=== PATIENT | female | born 1950 | race Caucasian/White ===

== ENCOUNTER 2017-05-08 11:19 | Inpatient (IN) | payer OTHER ==
[2017-05-08 14:45] LABS: ADD MAN DIFF? NO
[2017-05-08 14:46] LABS: BASOPHIL # 0.1 10^3/ul (0.0-0.1); BASOPHILS % 0.6 % (0.0-2.0); EOSINOPHILS # 0.3 10^3/ul (0.0-0.5); EOSINOPHILS % 2.5 % (0.0-7.0); HEMATOCRIT 34.3 % (37.0-47.0); HEMOGLOBIN 11.5 g/dl (12.0-16.0); LYMPHOCYTES # 4.9 10^3/ul (0.8-2.9); MEAN CORPUSCULAR HEMOGLOBIN 30.2 pg (29.0-33.0); MEAN CORPUSCULAR HGB CONC 33.5 g/dl (32.0-37.0); MEAN PLATELET VOLUME 11.4 fl (7.4-10.4); MONOCYTE # 0.9 10^3/ul (0.3-0.9); MONOCYTES % 7.5 % (0.0-11.0); NEUTROPHILS % 48.9 % (39.0-77.0); PLATELET COUNT 297 10^3/UL (140-415); RED BLOOD COUNT 3.81 10^6/ul (4.20-5.40); RED CELL DISTRIBUTION WIDTH 15.1 % (11.5-14.5)
[2017-05-08 14:46] LABS: WHITE BLOOD COUNT 12.2 10^3/ul (4.8-10.8)
[2017-05-08 15:06] LABS: INR 1.01; PROTIME 13.4 Sec (11.9-14.9)
[2017-05-08 15:07] LABS: PARTIAL THROMBOPLASTIN TIME 30.9 Sec (25.0-35.0)
[2017-05-08 15:16] LABS: ALANINE AMINOTRANSFERASE 31 IU/L (13-69); ALBUMIN 3.8 g/dl (3.3-4.9); ALBUMIN/GLOBULIN RATIO 1.31; ALKALINE PHOSPHATASE 65 IU/L (42-121); ANION GAP 11 (8-16); ASPARTATE AMINO TRANSFERASE 16 IU/L (15-46); BLOOD UREA NITROGEN 29 mg/dl (7-20); CALCIUM 8.8 mg/dl (8.4-10.2); CARBON DIOXIDE 29 mmol/L (21-31); CHLORIDE 105 mmol/L (97-110); CREATININE 0.72 mg/dl (0.44-1.00); GLUCOSE 142 mg/dl (70-220); LIPASE 60 U/L (23-300); POTASSIUM 4.2 mmol/L (3.5-5.1); SODIUM 141 mmol/L (135-144); TOTAL PROTEIN 6.7 g/dl (6.1-8.1)
[2017-05-08] MEDS: HYDROmorphONE 1 MG/ML SYG IV (17:40)
[2017-05-08] MEDS: ONDANSETRON 4 MG INJ IV (17:40)
[2017-05-08] MEDS: LABETALOL HCL 20MG INJ IV (19:25)
[2017-05-08] MEDS ORDERED: LOSARTAN 50 MG TAB PO (19:30)
[2017-05-08] MEDS ORDERED: ONDANSETRON 4 MG INJ IV ×3 (19:30→21:30)
[2017-05-08] MEDS ORDERED: ACETAMINOPHEN 325 MG TAB PO ×2 (19:30→21:30)
[2017-05-08] MEDS ORDERED: GLUCOSE GEL 15 GRAM TUBE BUCCAL (20:00)
[2017-05-08] MEDS ORDERED: GLUCAGON 1 MG INJ IM (20:00)
[2017-05-08] MEDS ORDERED: GLUCOSE GEL 15 GRAM TUBE PO ×2 (20:00)
[2017-05-08] MEDS ORDERED: DEXTROSE 50% 50 ML SYRINGE IV ×2 (20:00)
[2017-05-08] MEDS: AMPICILLIN/SULB 3 GM/NS (PMX) 100 ML IVPB (20:21)
[2017-05-08] MEDS: LINAGLIPTIN 5 MG TABLET PO (20:24)
[2017-05-08] MEDS: metFORMIN 500 MG TAB PO (20:25)
[2017-05-08] MEDS: FENOFIBRATE 145 MG TAB PO (20:25)
[2017-05-08] MEDS ORDERED: NACL 0.9% 3 ML SYG IV (21:30)
[2017-05-08] MEDS ORDERED: BISACODYL (EC) 5 MG TAB PO (21:30)
[2017-05-08] MEDS: SOD CHLORIDE 0.9% 1,000 ML IV (22:42)
[2017-05-08] MEDS: HYDROmorphONE 0.5 MG/0.5 ML SYG IV (22:43)
[2017-05-09] MEDS: INSULIN ASPART [NOVOLOG] 3 ML PEN SC ×4 (01:00→12:09)
[2017-05-09] MEDS: PIPER-TAZO 3.375 GM IV (PMX) 100 ML IVPB ×4 (01:07→17:31)
[2017-05-09] MEDS ORDERED: ACCU-CHEK XX (02:00)
[2017-05-09] MEDS: LOSARTAN 50 MG TAB PO (05:57)
[2017-05-09] MEDS: PANTOPRAZOLE (EC) 40 MG TAB PO (05:58)
[2017-05-09 07:45] LABS: ADD MAN DIFF? NO
[2017-05-09] MEDS ORDERED: GLYCOPYRROLATE 0.4 MG INJ (07:46)
[2017-05-09] MEDS ORDERED: NEOSTIGMINE 3 MG/3 ML SYRINGE (07:46)
[2017-05-09] MEDS ORDERED: PROPOFOL 20 ML (07:46)
[2017-05-09] MEDS ORDERED: ROCURONIUM 50 MG INJ (07:46)
[2017-05-09] MEDS ORDERED: CEFAZOLIN 1 GM INJ (07:46)
[2017-05-09] MEDS ORDERED: ONDANSETRON 4 MG INJ (07:47)
[2017-05-09] MEDS ORDERED: FENTAnyl 50 MCG/ML VIAL (07:47)
[2017-05-09] MEDS ORDERED: DEXAMETHASONE 4 MG/ML 1 ML INJ (07:47)
[2017-05-09] MEDS ORDERED: MIDAZOLAM 1 MG/ML 2 ML INJ (07:47)
[2017-05-09 07:48] LABS: WHITE BLOOD COUNT 11.7 10^3/ul (4.8-10.8)
[2017-05-09 07:48] LABS: BASOPHIL # 0.1 10^3/ul (0.0-0.1); BASOPHILS % 0.8 % (0.0-2.0); EOSINOPHILS # 0.4 10^3/ul (0.0-0.5); EOSINOPHILS % 3.1 % (0.0-7.0); HEMATOCRIT 34.8 % (37.0-47.0); HEMOGLOBIN 11.3 g/dl (12.0-16.0); LYMPHOCYTES # 4.7 10^3/ul (0.8-2.9); LYMPHOCYTES % 40.1 % (15.0-51.0); MEAN CORPUSCULAR HGB CONC 32.5 g/dl (32.0-37.0); MEAN CORPUSCULAR VOLUME 92.3 fl (82.0-101.0); MEAN PLATELET VOLUME 12.1 fl (7.4-10.4); MONOCYTES % 8.9 % (0.0-11.0); NEUTROPHIL # 5.5 10^3/ul (1.6-7.5); NEUTROPHILS % 46.8 % (39.0-77.0); PLATELET COUNT 310 10^3/UL (140-415); RED BLOOD COUNT 3.77 10^6/ul (4.20-5.40); RED CELL DISTRIBUTION WIDTH 15.4 % (11.5-14.5)
[2017-05-09] MEDS ORDERED: ONDANSETRON 4 MG INJ IV ×2 (08:00→09:00)
[2017-05-09] MEDS ORDERED: IPRATROPIUM (NEB) 0.5 MG/2.5 ML AMP HHN (08:00)
[2017-05-09] MEDS ORDERED: FENTAnyl 50 MCG/ML VIAL IV ×2 (08:00)
[2017-05-09] MEDS ORDERED: EPHEDrine SULFATE 50 MG/5 ML SYG IV (08:00)
[2017-05-09] MEDS ORDERED: TRIMETHOBENZAMIDE 100 MG/ML VIAL IM (08:00)
[2017-05-09] MEDS ORDERED: hydrALAzine 20 MG INJ IV (08:00)
[2017-05-09] MEDS ORDERED: HYDROmorphONE (0.2 MG/ML) 10ML SYG IV ×3 (08:00)
[2017-05-09] MEDS ORDERED: MIDAZOLAM 1 MG/ML 2 ML INJ IV (08:00)
[2017-05-09] MEDS ORDERED: DIPHENHYDRAMINE 50 MG INJ IV (08:00)
[2017-05-09] MEDS ORDERED: OXYCODONE/ACETAMINOPHEN (5/325) TAB PO ×2 (08:00)
[2017-05-09] MEDS ORDERED: ALBUTEROL 0.083% (NEB) 2.5 MG/3 ML AMP HHN (08:00)
[2017-05-09] MEDS: FENOFIBRATE 145 MG TAB PO (08:03)
[2017-05-09 08:09] LABS: B-TYPE NATRIURETIC PEPTIDE 161 PG/ML (0-125)
[2017-05-09] MEDS: BUPIVACAINE 0.25% (MPF) 30 ML INJ (08:17)
[2017-05-09 08:19] LABS: ALBUMIN 2.8 g/dl (3.3-4.9); ALBUMIN/GLOBULIN RATIO 1.12; BILIRUBIN,INDIRECT 0.4 mg/dl (0-1.1); BILIRUBIN,TOTAL 0.4 mg/dl (0.2-1.3); CALCIUM 8.2 mg/dl (8.4-10.2); CHLORIDE 108 mmol/L (97-110); CHOLESTEROL 103 mg/dl (100-200); CREATININE 0.93 mg/dl (0.44-1.00); MAGNESIUM 2.1 mg/dl (1.7-2.5); POTASSIUM 4.1 mmol/L (3.5-5.1); SODIUM 141 mmol/L (135-144); TOTAL PROTEIN 5.3 g/dl (6.1-8.1)
[2017-05-09] MEDS ORDERED: SUGAMMADEX SODIUM 200 MG/2 ML VIAL IV (08:23)
[2017-05-09 08:24] LABS: ANION GAP 10 (8-16)
[2017-05-09 08:25] LABS: CARBON DIOXIDE 27 mmol/L (21-31)
[2017-05-09 08:26] LABS: CHOL/HDL RATIO 2.8 RATIO; LDL CHOLESTEROL,CALCULATED 39 mg/dl
[2017-05-09 08:31] LABS: ASPARTATE AMINO TRANSFERASE 19 IU/L (15-46); BLOOD UREA NITROGEN 27 mg/dl (7-20); GLUCOSE 123 mg/dl (70-220); HDL CHOLESTEROL 36 mg/dl (35-98); TRIGLYCERIDES 140 mg/dl (0-149)
[2017-05-09 08:53] LABS: INR 1.13; PROTIME 14.7 Sec (11.9-14.9); PT RATIO 1.1
[2017-05-09] MEDS: MEPERIDINE 25 MG INJ IV (08:54)
[2017-05-09] MEDS: LABETALOL HCL 20MG INJ IV (08:58)
[2017-05-09 09:04] LABS: PARTIAL THROMBOPLASTIN TIME 33.3 Sec (25.0-35.0)
[2017-05-09] MEDS: FENTAnyl 50 MCG/ML VIAL IV (09:18)
[2017-05-09 09:57] LABS: ALKALINE PHOSPHATASE 32 IU/L (42-121)
[2017-05-09 10:22] LABS: ALANINE AMINOTRANSFERASE 29 IU/L (13-69)
[2017-05-09] MEDS: morphine 2 MG INJ IV (10:57)
[2017-05-09] MEDS: SOD CHLORIDE 0.9% 1,000 ML IV (11:40)
[2017-05-09] MEDS: LEVOTHYROXINE 50 MCG TAB PO (12:06)
[2017-05-09] MEDS: OXYCODONE/ACETAMINOPHEN (5/325) TAB PO ×2 (12:07→20:46)
[2017-05-09] MEDS ORDERED: ACCUCHECK 2 AM XX (13:00)
[2017-05-09] MEDS ORDERED: INSULIN ASPART [NOVOLOG] 3 ML PEN SC (17:05)
[2017-05-09] MEDS: Insulin NOVOLOG SS MILD Algorithm (SS with meals and bedtime) SC (17:34)
[2017-05-09] MEDS: DOCUSATE SODIUM 100 MG CAP PO (20:46)
[2017-05-10] MEDS: SOD CHLORIDE 0.9% 1,000 ML IV (00:10)
[2017-05-10] MEDS: PIPER-TAZO 3.375 GM IV (PMX) 100 ML IVPB ×2 (00:10→05:49)
[2017-05-10] MEDS: LOSARTAN 50 MG TAB PO (05:49)
[2017-05-10] MEDS: LEVOTHYROXINE 50 MCG TAB PO (05:49)
[2017-05-10] MEDS: PANTOPRAZOLE (EC) 40 MG TAB PO (05:49)
[2017-05-10] MEDS: OXYCODONE/ACETAMINOPHEN (5/325) TAB PO ×2 (06:01→10:49)
[2017-05-10 06:48] LABS: ADD MAN DIFF? NO
[2017-05-10 07:05] LABS: BASOPHILS % 0.1 % (0.0-2.0); EOSINOPHILS # 0.2 10^3/ul (0.0-0.5); EOSINOPHILS % 1.5 % (0.0-7.0); HEMATOCRIT 24.9 % (37.0-47.0); HEMOGLOBIN 8.3 g/dl (12.0-16.0); LYMPHOCYTES # 3.5 10^3/ul (0.8-2.9); MEAN CORPUSCULAR HEMOGLOBIN 30.9 pg (29.0-33.0); MEAN CORPUSCULAR HGB CONC 33.3 g/dl (32.0-37.0); MEAN CORPUSCULAR VOLUME 92.6 fl (82.0-101.0); MEAN PLATELET VOLUME 12.5 fl (7.4-10.4); MONOCYTE # 1.4 10^3/ul (0.3-0.9); MONOCYTES % 10.8 % (0.0-11.0); NEUTROPHIL # 7.8 10^3/ul (1.6-7.5); PLATELET COUNT 248 10^3/UL (140-415); RED BLOOD COUNT 2.69 10^6/ul (4.20-5.40); RED CELL DISTRIBUTION WIDTH 15.5 % (11.5-14.5)
[2017-05-10 07:13] LABS: PHOSPHORUS 6.2 mg/dl (2.5-4.9)
[2017-05-10 07:21] LABS: INR 1.28; PROTIME 16.2 Sec (11.9-14.9); PT RATIO 1.3
[2017-05-10 07:22] LABS: PARTIAL THROMBOPLASTIN TIME 31.2 Sec (25.0-35.0)
[2017-05-10 07:30] LABS: ALANINE AMINOTRANSFERASE 23 IU/L (13-69); ALBUMIN 2.5 g/dl (3.3-4.9); ALBUMIN/GLOBULIN RATIO 1.08; ALKALINE PHOSPHATASE 28 IU/L (42-121); ANION GAP 19 (8-16); ASPARTATE AMINO TRANSFERASE 13 IU/L (15-46); BILIRUBIN,INDIRECT 0.5 mg/dl (0-1.1); BILIRUBIN,TOTAL 0.5 mg/dl (0.2-1.3); BLOOD UREA NITROGEN 41 mg/dl (7-20); CALCIUM 7.6 mg/dl (8.4-10.2); CARBON DIOXIDE 20 mmol/L (21-31); CHLORIDE 105 mmol/L (97-110); CREATININE 1.44 mg/dl (0.44-1.00); GLUCOSE 199 mg/dl (70-220); POTASSIUM 4.9 mmol/L (3.5-5.1); SODIUM 139 mmol/L (135-144); TOTAL PROTEIN 4.8 g/dl (6.1-8.1)
[2017-05-10] MEDS: FENOFIBRATE 145 MG TAB PO (08:06)
== END 2017-05-10 11:12 | disposition home or self-care (01) | DRG 342 ==
LOC: E/R 11:19 → MS3 19:12
PROC: 0DTJ4ZZ Resection of Appendix, Percutaneous Endoscopic Approach (ICD-10-PCS; principal; 2017-05-09 07:30)
DX: K35.80 Unspecified acute appendicitis (principal); N17.9 Acute kidney failure, unspecified; I10 Essential (primary) hypertension; E11.9 Type 2 diabetes mellitus without complications; E78.5 Hyperlipidemia, unspecified; E03.9 Hypothyroidism, unspecified; Z79.4 Long term (current) use of insulin; Z90.49 Acquired absence of other specified parts of digestive tract
CPT/HCPCS: 71045; 74176; 76705; 80053; 80061; 82962; 83036; 83690; 83735; 83880; 84100; 84443; 85025; 85610; 85730; 88304; 93005; 93306; 96374; 96375; 99285-25